=== PATIENT | male | born 1970 | race Caucasian/White ===

== ENCOUNTER 2020-04-02 03:32 | Outpatient (CLI) | payer BC, SELFPAY ==
[2020-04-02 14:42] LABS: Anion Gap 12.8 mmol/L (3-11); BUN 23 mg/dL (7-18); CO2 23.2 mmol/L (21.0-32.0); CREATININE 1.36 mg/dL (0.70-1.30); Calcium 9.4 mg/dL (8.5-10.1); Calculated LDL 113 mg/dL (<100); Chloride 106 mmol/L (98-107); Cholesterol 183 mg/dL (<200); Estimated GFR 55.25 (mL/min/1.73m2); Glucose 115 mg/dL (74-106); HDL Cholesterol 51 mg/dL (40-60); Potassium 4.2 mmol/L (3.5-5.1); Sodium 142 mmol/L (136-145); Triglyceride 95 mg/dL (<150)
== END 2020-04-02 03:52 ==
PROVIDERS: PCP Internal Medicine; Visit Provider Internal Medicine
DX: I10 Essential (primary) hypertension (principal); E78.00 Pure hypercholesterolemia, unspecified
CPT/HCPCS: 36415; 80048; 80061

== ENCOUNTER 2022-11-24 02:43 | Outpatient (CLI) | payer BC, SELFPAY ==
[2022-11-24 07:24] LABS: HCT 46.7 % (40.0-50.0); HGB 15.6 g/dL (13.5-17.5); MCH 29.7 pg (27.0-33.0); MCHC 33.4 % (32.0-36.0); MCV 89 fL (80-95); MPV 9.4 fL (8.0-11.0); Platelet Count 213 10^3/uL (130-400); RBC 5.26 10^6/uL (4.36-5.78); RDW 12.3 % (11.8-14.1)
[2022-11-24 08:19] LABS: ALT 77 U/L (16-63); AST 33 U/L (15-37); Albumin 3.8 g/dL (3.4-5.0); Alkaline Phosphatase 72 U/L (46-116); Anion Gap 9.5 mmol/L (3-11); BUN 14 mg/dL (7-18); CO2 26.5 mmol/L (21.0-32.0); CREATININE 1.3 mg/dL (0.70-1.30); Calcium 9.1 mg/dL (8.5-10.1); Calculated LDL 93 mg/dL (<100); Chloride 106 mmol/L (98-107); Cholesterol 171 mg/dL (<200); Estimated GFR 65.28 (mL/min/1.73m2); Glucose 173 mg/dL (74-106); HDL Cholesterol 52 mg/dL (40-60); Potassium 3.8 mmol/L (3.5-5.1); Sodium 142 mmol/L (136-145); Total Protein 7.2 g/dL (6.4-8.2); Triglyceride 134 mg/dL (<150)
== END 2022-11-24 02:44 | disposition home or self-care (01) ==
LOC: LBO 02:45
PROVIDERS: Absent Provider Nurse Practitioner; PCP Nurse Practitioner; Referring Provider Nurse Practitioner; Visit Provider Nurse Practitioner
DX: I10 Essential (primary) hypertension (principal); F32.89 Other specified depressive episodes; E80.4 Gilbert syndrome
CPT/HCPCS: 36415; 80053; 80061; 85027

== ENCOUNTER 2024-08-26 02:40 | Outpatient (CLI) | payer BC, SELFPAY ==
[2024-08-26 07:20] LABS: Hemoglobin A1C 7.6 % (<5.7)
[2024-08-26 07:48] LABS: ALT 131 U/L (16-63); AST 53 U/L (15-37); Albumin 3.8 g/dL (3.4-5.0); Alkaline Phosphatase 72 U/L (46-116); BUN 20 mg/dL (7-18); Bilirubin, Total 1.38 mg/dL (0.2-1.0); CREATININE 1.3 mg/dL (0.70-1.30); Calcium 9.5 mg/dL (8.5-10.1); Calculated LDL 96 mg/dL (<100); Chloride 107 mmol/L (98-107); Cholesterol 181 mg/dL (<200); Estimated GFR 64.47 (mL/min/1.73m2); Glucose 201 mg/dL (74-106); HDL Cholesterol 56 mg/dL (40-60); Potassium 4.1 mmol/L (3.5-5.1); Sodium 140 mmol/L (136-145); Total Protein 7.8 g/dL (6.4-8.2); Triglyceride 145 mg/dL (<150)
== END 2024-08-26 02:41 | disposition home or self-care (01) ==
LOC: LBO 02:40
PROVIDERS: PCP Nurse Practitioner; Referring Provider Nurse Practitioner; Visit Provider Nurse Practitioner
DX: R73.03 Prediabetes (principal); I10 Essential (primary) hypertension
CPT/HCPCS: 36415; 80053; 80061; 83036

== ENCOUNTER 2025-01-13 00:44 | Outpatient (CLI) | payer BC, SELFPAY ==
[2025-01-16 09:24] LABS: Hepatitis C Ab w Rflx HCV PCR Negative (Negative)
--- NOTE | 2025-01-18 12:01 | W.NUTRFU ---
Date of service: 10/21/24 Time of Service: 09:00 Nutrition Note NOTE: comes in for referred nutrition visit regarding diabetes/glucose mgt. A1c went up >7 last check. has long work hours - tends to grab what i can rather than be proactive with planning. does drink soda and other SSB's occasionally. Reviewed sleep, exercise (not just activity) and trying to focus on strength training, and stress mgt are all part of the picture. encouraged more plants and higher fiber diet - keep animal protein lean and minimal - try working in more lentils and beans, non-starchy veggies. Even suggested [employer] party platter veggies with dip while working if he needs something to graze on. encouraged to reach for low hanging fruit like added sugars and soda habit. pt has my card with contact info should he desire follow or have any more quetions/need for further resources. Time Spent in Nutritional Counseling and Treatment: 25 min
== END 2025-01-13 00:45 | disposition home or self-care (01) ==
LOC: LBO 00:44
PROVIDERS: Absent Provider Nurse Practitioner; PCP Nurse Practitioner; Referring Provider Nurse Practitioner; Visit Provider Nurse Practitioner
DX: R79.89 Other specified abnormal findings of blood chemistry (principal)
CPT/HCPCS: 00123; 36415; 86803